=== PATIENT | female | born 1955 | race Caucasian/White ===

== ENCOUNTER → 2017-10-25 | Outpatient (CLI) | payer BC | END | disposition home or self-care (01) | LOC: MAMMO 13:21 | PROVIDERS: ATTEND Family Medicine | DX: Z12.31 Encounter for screening mammogram for malignant neoplasm of breast (principal) ==

== ENCOUNTER 2018-07-08 19:41 | Emergency (ER) | payer BC ==
[2018-07-08 20:00] VITALS: TEMP 98.8; O2SAT 98
--- NOTE | 2018-07-08 20:17 | ED.PDOC ---
History of Present Illness - General Chief Complaint: Neck Injury/Pain Stated Complaint: neck pain Time Seen by Provider: 07/08/18 20:12 Source: patient Exam Limitations: no limitations - History of Present Illness Initial Comments: Radha Landry 62 y/o female stated while weedeating at her yard today stepped off a ledge and fell face down on the ditch.Has dull neck pains and frontal headache after incident .Denies LOC,blurry vision,n/v,remembers incident.Denies chronic medical problem.Noted bleeding on top of nose but stopped after applying pressure. Occurred: just prior to arrival Severity: moderate Pain Location: head, neck Improving Factors: nothing Worsening Factors: nothing Loss of Consciousness: no loss of consciousness Associated Symptoms (Fall): denies symptoms, other - see hpi Allergies/Adverse Reactions: Allergies NO KNOWN ALLERGY Allergy (Verified 07/08/18 20:00) Home Medications: Ambulatory Orders NK [NK] 07/08/18 Review of Systems - Review of Systems Constitutional: States: no symptoms reported EENTM: States: see HPI Respiratory: States: no symptoms reported Cardiology: States: no symptoms reported Gastrointestinal/Abdominal: States: no symptoms reported Genitourinary: States: no symptoms reported Musculoskeletal: States: see HPI Skin: States: see HPI Neurological: States: no symptoms reported Endocrine: States: no symptoms reported Past Medical History (General) - Patient Medical History Hx Diabetes: No Surgical History: no surgical history - Vaccination History Hx Tetanus, Diphtheria Vaccination: Yes - 1 year ago Hx Influenza Vaccination: No - Social History Hx Alcohol Use: No Hx Substance Use: No Hx Depression: No Feels Threatened In Home Enviroment: No Hx Physical Abuse: No Hx Emotional Abuse: No - Activities of Daily Living Patient Lives Alone: No - Female History Patient is a Female of Child Bearing Age (10 -59 yrs old): No - Triage Comment ED Triage Comment: Pain in neck and upper back after falling onto face, while weedeating Family Medical History - Family History Father Family History: Unknown Hx Family Cancer: Yes - sister-lymphoma Physical Exam - Physical Exam General Appearance: Alert, Comfortable, No apparent distress Head Injury: no evidence of injury Eye Exam: bilateral normal ENT Exam: hearing grossly normal, no evidence of ENT injury, no dental injury Neck Exam: normal alignment, limited range of motion, muscle spasm, painful range of motion, paraspinous muscle tender Cardiovascular/Respiratory: regular rate, rhythm, no M/R/G, normal peripheral pulses Gastrointestinal/Abdominal: normal bowel sounds, non tender, soft, no organomegaly Back Exam: no CVA tenderness, no vertebral tenderness Extremity Exam: no evidence of injury, normal range of motion, non-tender Neurologic: alert, oriented x 3 Skin Exam: normal color, warm/dry, other - superficial skin laceration non gaping,non bleeding - [place] Coma Score Best Eye Response ([place]): (4) open spontaneously Best Verbal Response ([place]): (5) oriented Best Motor Response ([place]): (6) obeys commands [place] Total: 15 Progress - Progress Progress: 07/08/18 20:23 Vital Signs - 8 hr 07/08/18 19:56 Temperature 98.8 F Pulse Rate [ 88 Left] Respiratory 16 Rate Blood Pressure 160/95 [Left Arm] O2 Sat by Pulse 98 Oximetry - EKG/XRAY/CT CT Ordered: Yes - head/neck -no acute abnormalities Departure - Departure Clinical Impression: Neck pain, Headache above the eye region, Minor skin laceration Fall Qualifiers: Encounter type: initial encounter Qualified Code(s): W19.XXXA - Unspecified fall, initial encounter Contusion of head Qualifiers: Encounter type: initial encounter Contusion of head detail: nose Qualified Code (s): S00.33XA - Contusion of nose, initial encounter Time of Disposition: 21:56 Disposition: Discharge to Home or Self Care Condition: Fair Departure Forms: ED Discharge - Pt. Copy, Patient Portal Self Enrollment Instructions: DI for Neck Pain, Contusion (DC), Wound Care (DC) Referrals: Eric Edgar MD [Primary Care Provider] - 1-2 Weeks Home Medications: Ambulatory Orders NK [NK] 07/08/18 Additional Instructions: May take (over the counter)Ibuprofen -3-4 tablets 4 x a day for pain;Return to emergency room as needed
--- NOTE | 2018-07-08 21:19 | CT ---
PROCEDURE: CT Cervical Spine Without Intravenous Contrast CLINICAL INDICATION: The patient is 62 years old and is Female; fall/headache TECHNIQUE: Axial computed tomography images of the cervical spine without intravenous contrast. Sagittal and coronal reformatted images were created and reviewed. This exam was performed according to our departmental dose-optimization program, which includes automated exposure control, adjustment of the mA and/or kV according to patient size and/or use of iterative reconstruction technique. COMPARISON: No relevant prior studies available. FINDINGS: VERTEBRAE: No fracture or malalignment identified in the cervical spine. The lateral masses of C1 are normal with respect to C2. Small corticated density at the anterior inferior margin of C5 may be an old fractured osteophyte. The dens is intact. DISCS/SPINAL CANAL/NEURAL FORAMINA: Cervical straightening is present, which may be due to degenerative changes, cervical collar placement, positioning, muscular spasm or ligamentous injury. No spinal canal stenosis. OTHER BONES/JOINTS: The visualized skull base is without fracture. SOFT TISSUES: No prevertebral soft tissue hematoma identified. SINUSES: There are small polyps in the maxillary sinuses bilaterally. MASTOID AIR CELLS: The inferior mastoid air cells are clear. THYROID: There is a 2.2 x 1.9 cm LEFT interpolar region thyroid nodule which does not measure fluid density. LUNG APICES: The lung apices are clear. IMPRESSION: No fracture or malalignment identified in the cervical spine. There is a 2.2 x 1.9 cm LEFT interpolar region thyroid nodule which does not measure fluid density. ACR White Paper guidelines (Angel JK, et al. JACR 2015;12(2):143-50) suggest further evaluation with thyroid ultrasound. Electronically signed by: Andrew Williamson MD 07/08/2018 9:18 PM CDT
--- NOTE | 2018-07-08 21:23 | CT ---
PROCEDURE: CT Head Without Intravenous Contrast CLINICAL INDICATION: The patient is 62 years old and is Female; fall/headache TECHNIQUE: Axial computed tomography images of the head/brain without intravenous contrast. Sagittal and coronal reformatted images were created and reviewed. This exam was performed according to our departmental dose-optimization program, which includes automated exposure control, adjustment of the mA and/or kV according to patient size and/or use of iterative reconstruction technique. COMPARISON: No relevant prior studies available. FINDINGS: BRAIN: Early infarcts within the first 12 hours may not be visible on noncontrast CT. The garibay/white matter differentiation is intact. NO intra-or extra-axial fluid collections are seen. No hemorrhage. MIDLINE SHIFT: There is NO midline shift. VENTRICLES: There is mild bilateral frontal atrophy with prominence of the ventricles, sulci and basilar cisterns. BONES/JOINTS: Unremarkable. No acute fracture. SOFT TISSUES: The soft tissues of the scalp are unremarkable. SINUSES: There are small polyps in both maxillary sinuses. MASTOID AIR CELLS: Unremarkable as visualized. No mastoid effusion. IMPRESSION: 1. There is mild bilateral frontal atrophy with prominence of the ventricles, sulci and basilar cisterns. 2. No acute intracranial abnormality is identified. Electronically signed by: Andrew Williamson MD 07/08/2018 9:21 PM CDT
[2018-07-08 22:09] VITALS: BP 157/64
== END 2018-07-08 22:09 | disposition home or self-care (01) ==
LOC: ER 19:41
DX: S01.20XA Unspecified open wound of nose, initial encounter (principal); R51 Headache; M54.2 Cervicalgia; M54.6 Pain in thoracic spine; W18.39XA Other fall on same level, initial encounter; Y92.007 Garden or yard of unspecified non-institutional (private) residence as the place of occurrence of the external cause; Y93.H2 Activity, gardening and landscaping

== ENCOUNTER → 2019-07-18 | Outpatient (CLI) | payer MEDICARE ==
--- NOTE | 2019-07-22 15:29 | MAM ---
EXAM DESCRIPTION: 3D Screening BILATERAL : Digital Mammography. CLINICAL HISTORY: 63 years Female ANNUAL SCREENING . No complaints. No personal or family history of breast cancer. Menarche age 9. No childbirth. Postmenopausal. Previous use of control 2 control uterine bleeding but no HRT.. Lifetime risk of developing breast cancer (Tyrer-Cuzick model)(%): 7.6. COMPARISON: Bilateral screening digital breast tomosynthesis on 2017. 2-D digital screening bilateral mammography 10/03/2016. TECHNIQUE: Bilateral CC and MLO projection full-field images, digital tomosynthesis mammographic technique. Bilateral digital 2-D full-field MLO images. CAD not available for tomosynthesis or 2-D images. FINDINGS: The breast parenchymal density pattern is: Scattered areas of fibroglandular density. No skin thickening or nipple retraction. Multiple solitary microcalcifications and intraparenchymal. Also bilateral skin calcifications. No new focal, stellate mass or density, focal asymmetry , and no suspicious microcalcifications bilaterally. Stable mammograms compared to prior study. Taking into account, differences in mammographic technique. IMPRESSION: Benign exam. BIRAD CATEGORY: 2 BENIGN FINDINGS. RECOMMENDATIONS: FOLLOW UP: Routine digital bilateral mammographic screening, one year interval from July 2019. Written communication explaining the IMPRESSION and follow-up, will be mailed to the patient and referring health care provider. According to the [employer], yearly mammograms are recommended starting at age 40 and continuing as long as a woman is in good health. Any breast change noted on a breast self-exam should be reported promptly to the patient's healthcare provider. Breast MRI is recommended for women with an approximately 20-25% or greater lifetime risk of breast cancer, including women with a strong family history of breast or ovarian cancer and women who have been treated for Hodgkin's disease. A negative mammographic report should not delay tissue diagnosis in patients with significant clinical history or physical findings. Extremely dense breast tissue limits the sensitivity of digital mammography. Electronically signed by: Luke Madison MD 07/22/2019 3:27 PM CDT
== END ==
LOC: MAMMO 10:44
PROVIDERS: ATTEND Family Medicine
DX: Z12.31 Encounter for screening mammogram for malignant neoplasm of breast (principal)